=== PATIENT | male | born 1985 | race Caucasian/White ===

== ENCOUNTER 2020-08-08 11:39 | Emergency (ER) | payer BC ==
[2020-08-08 11:49] VITALS: RESP 18; TEMP 97.9
[2020-08-08 12:27] LABS: Basophils % (A) 0 %; Eosinophils # (A) 0.2 k/uL (0-0.7); Eosinophils % (A) 3 %; HCT 43.4 % (39.0-53.0); HGB 15.5 gm/dL (13.0-17.5); Lymphocytes # (A) 1.5 k/uL (1.0-4.8); Lymphocytes % (A) 22 %; MCH 33.2 pg (25.0-35.0); MCHC 35.7 g/dL (31.0-37.0); MCV 93.1 fL (80.0-100.0); Mean Platelet Volume 7.4; Monocytes # (A) 0.8 k/uL (0-1.0); Monocytes % (A) 11 %; Neutrophils # (A) 4.1 k/uL (1.3-7.7); Neutrophils % (A) 61 %; Platelet Count 218 k/uL (150-450); RBC 4.66 m/uL (4.30-5.90); RDW 11.8 % (11.5-15.5); WBC 6.7 k/uL (3.8-10.6)
[2020-08-08 12:44] LABS: African American GFR (CKD) >90 (>60 ml/min/1.73 sqM); Anion Gap 8 mmol/L; Blood Urea Nitrogen 20 mg/dL (9-20); Calcium 9.9 mg/dL (8.4-10.2); Carbon Dioxide 30 mmol/L (22-30); Chloride 107 mmol/L (98-107); Glucose 88 mg/dL (74-99); Non-African American GFR(CKD) >90 (>60 ml/min/1.73 sqM); Potassium 3.8 mmol/L (3.5-5.1); Sodium 145 mmol/L (137-145)
--- NOTE | 2020-08-08 12:53 | ED ---
General Adult HPI - General Chief complaint: Skin/Abscess/Foreign Body Stated complaint: facial swelling Time Seen by Provider: 08/08/20 11:49 Source: patient, RN notes reviewed Mode of arrival: ambulatory Limitations: no limitations - History of Present Illness Initial comments: 35-year-old male presents emergency Department chief complaint right-sided facial swelling. Patient states started old little bit discomfort on the right mandibular region, tooth pain on Monday. He states that he did a telephone health visit states that they noticed low rash right-sided started him on doxycycline. He states he later went to take his discharge the dentist in which his dentist evaluated him and told him he had dental infection started on Augmentin. Patient did not start the doxycycline. He states states taken Augmentin in the emergency tooth extraction of 3 teeth in the right upper on . He noticed a that he had some swelling inferior and superior of his right eye. Patient denies any neck pain or neck stiffness no severe headache. He states the pain is improving but just concerned about swelling. - Related Data Previous Rx's Medication Instructions Recorded Clindamycin HCl 300 mg PO Q6HR #28 cap 08/08/20 Allergies Allergy/AdvReac Type Severity Reaction Status Date / Time No Known Allergies Allergy Verified 08/08/20 11:48 Review of Systems ROS Statement: Those systems with pertinent positive or pertinent negative responses have been documented in the HPI. ROS Other: All systems not noted in ROS Statement are negative. Past Medical History Past Medical History: No Reported History History of Any Multi-Drug Resistant Organisms: MRSA Date of last positivie culture/infection: 2008 MDRO Source:: skin Past Surgical History: No Surgical Hx Reported Past Psychological History: No Psychological Hx Reported Smoking Status: Former smoker Past Alcohol Use History: Rare Past Drug Use History: None Reported General Exam Limitations: no limitations General appearance: alert, in no apparent distress Head exam: Present: atraumatic, normocephalic, normal inspection Eye exam: Present: normal appearance, PERRL, EOMI, periorbital swelling (Mild right-sided). Absent: scleral icterus, conjunctival injection ENT exam: Present: mucous membranes moist, TM's normal bilaterally, other (Mild right sided facial erythema, swelling noted). Absent: normal exam, normal oropharynx (Recent tooth extraction right upper 3) Neck exam: Present: normal inspection, full ROM. Absent: tenderness, meningismus, lymphadenopathy Respiratory exam: Present: normal lung sounds bilaterally. Absent: respiratory distress, wheezes, rales, rhonchi, stridor Cardiovascular Exam: Present: regular rate, normal rhythm, normal heart sounds. Absent: systolic murmur, diastolic murmur, rubs, gallop, clicks Course Vital Signs 08/08/20 11:44 Temperature 97.9 F Pulse Rate 64 Respiratory 18 Rate Blood Pressure 138/98 O2 Sat by Pulse 100 Oximetry Medical Decision Making - Medical Decision Making 35-year-old sent for facial swelling. Patient does have evidence of dental infection mild facial cellulitis Patient CT does not reveal evidence of abscess. Patient will be discharged on antibiotics return parameters were discussed. - Lab Data Result diagrams: 08/08/20 12:13 08/08/20 12:13 Lab Results 08/08/20 08/08/20 08/08/20 Range/Units 12:13 12:13 12:13 WBC 6.7 (3.8-10.6) k/uL RBC 4.66 (4.30-5.90) m/uL Hgb 15.5 (13.0-17.5) gm/dL Hct 43.4 (39.0-53.0) % MCV 93.1 (80.0-100.0) fL MCH 33.2 (25.0-35.0) pg MCHC 35.7 (31.0-37.0) g/dL RDW 11.8 (11.5-15.5) % Plt Count 218 (150-450) k/uL MPV 7.4 Neutrophils % 61 % Lymphocytes % 22 % Monocytes % 11 % Eosinophils % 3 % Basophils % 0 % Neutrophils # 4.1 (1.3-7.7) k/uL Lymphocytes # 1.5 (1.0-4.8) k/uL Monocytes # 0.8 (0-1.0) k/uL Eosinophils # 0.2 (0-0.7) k/uL Basophils # 0.0 (0-0.2) k/uL Sodium 145 (137-145) mmol/L Potassium 3.8 (3.5-5.1) mmol/L Chloride 107 (98-107) mmol/L Carbon Dioxide 30 (22-30) mmol/L Anion Gap 8 mmol/L BUN 20 (9-20) mg/dL Creatinine 1.02 (0.66-1.25) mg/dL Est GFR (CKD-EPI)AfAm >90 (>60 ml/min/1.73 sqM) Est GFR (CKD-EPI)NonAf >90 (>60 ml/min/1.73 sqM) Glucose 88 (74-99) mg/dL Plasma Lactic Acid Pedro 1.4 (0.7-2.0) mmol/L Calcium 9.9 (8.4-10.2) mg/dL Disposition Clinical Impression: Cellulitis of face, Dental infection Disposition: HOME SELF-CARE Condition: Stable Instructions (If sedation given, give patient instructions): Cellulitis (ED) Additional Instructions: Please return to the Emergency Department if symptoms worsen or any other concerns. Prescriptions: Clindamycin HCl 300 mg PO Q6HR #28 cap Is patient prescribed a controlled substance at d/c from ED?: No Referrals: None,Stated [Primary Care Provider] - 1-2 days Time of Disposition: 13:32
--- NOTE | 2020-08-08 12:56 | CT ---
EXAMINATION TYPE: CT sinus w con DATE OF EXAM: 08/08/2020 COMPARISON: None HISTORY: Right sided upper dental infection CT DLP: 458.8 mGycm CONTRAST: 0 mL of Isovue 300 The paranasal sinuses are examined in the axial plane at 2 mm thick sections. Reconstructed images i n the coronal plane were obtained. There is dental amalgam scatter artifact There is a retention cyst within the inferior right maxillary sinus. The ethmoid air cells are clear . The sphenoid sinuses are clear. The frontal sinuses are clear. The septum is evaluated. There is septal deviation to the left. Left septal spur is present. The ostiomeatal units are patent. There is some mild soft tissue swelling through the subcutaneous tissues on the right compared to the left. No underlying abscess is identified. IMPRESSIONS: 1. Mucous retention cyst right maxillary sinus. 2. No suspicious acute sinus changes. 3. No suspicious changes to suggest abscess.
[2020-08-08] MEDS ORDERED: cefTRIAXone IN SWFI 1,000 MG/10 ML SYRINGE IVP STA (13:30)
[2020-08-08 13:44] VITALS: BP 117/81; PULSE 68
== END 2020-08-08 13:45 | disposition home or self-care (01) ==
LOC: EC 11:39
DX: L03.211 Cellulitis of face (principal); K04.7 Periapical abscess without sinus; Z87.891 Personal history of nicotine dependence
CPT/HCPCS: 36415; 80048; 83605; 85025; 70487; 99284; 96374; J0696; Q9967